=== PATIENT | female | born 1965 | race Caucasian/White ===

== ENCOUNTER → 2021-05-06 | Outpatient (CLI) | payer OTHER | LOC: RAD 14:12 | PROVIDERS: Nurse Practitioner Family | DX: M54.12 Radiculopathy, cervical region (principal); R06.02 Shortness of breath; R60.0 Localized edema; R35.0 Frequency of micturition; I10 Essential (primary) hypertension; M25.559 Pain in unspecified hip; M85.661 Other cyst of bone, right lower leg; M79.606 Pain in leg, unspecified; M54.9 Dorsalgia, unspecified; M25.519 Pain in unspecified shoulder; M51.34 Other intervertebral disc degeneration, thoracic region | CPT/HCPCS: 36415; 71046; 72040; 72070; 72100; 73030; 73522; 73590; 80048; 81001; 83880; 85379; 93005 ==

== ENCOUNTER → 2021-05-16 | Outpatient (CLI) | payer OTHER | LOC: HEART 5 07:53 | DX: R06.02 Shortness of breath (principal); R68.89 Other general symptoms and signs; R60.0 Localized edema | CPT/HCPCS: 78452; A9502; J2785 ==

== ENCOUNTER → 2021-06-15 | Outpatient (CLI) | payer OTHER | LOC: HEART 5 09:30 | DX: R94.39 Abnormal result of other cardiovascular function study (principal) | CPT/HCPCS: 93306 ==

== ENCOUNTER → 2021-07-15 | Outpatient (CLI) | payer OTHER | LOC: EXRD 12:50 | DX: N18.31 Chronic kidney disease, stage 3a (principal); N20.0 Calculus of kidney | CPT/HCPCS: 76775 ==

== ENCOUNTER → 2021-10-25 | Outpatient (CLI) | payer OTHER | LOC: EMI 09:48 | DX: M25.511 Pain in right shoulder (principal); M25.611 Stiffness of right shoulder, not elsewhere classified; R93.7 Abnormal findings on diagnostic imaging of other parts of musculoskeletal system | CPT/HCPCS: 73221 ==

== ENCOUNTER → 2021-11-29 | Outpatient (CLI) | payer OTHER | LOC: EXRD 11:05 | DX: R06.02 Shortness of breath (principal) | CPT/HCPCS: 71046 ==

== ENCOUNTER → 2022-02-16 | Outpatient (CLI) | payer OTHER ==
[2022-02-16 13:31] LABS: HEMOGLOBIN 13.4 gm/dl (12.3-15.3); RED BLOOD COUNT 4.43 M/UL (4.00-5.10); WHITE BLOOD COUNT 6.5 K/UL (4.5-11.0)
[2022-02-16 13:52] LABS: BUN/CREATININE RATIO 31 (0-10)
== END ==
LOC: LAB 12:33
PROVIDERS: Nurse Practitioner Family
DX: E11.9 Type 2 diabetes mellitus without complications (principal); M54.12 Radiculopathy, cervical region; I25.10 Atherosclerotic heart disease of native coronary artery without angina pectoris; R55 Syncope and collapse; R53.83 Other fatigue
CPT/HCPCS: 36415; 80053; 81001; 82550; 82552; 83036; 83615; 83625; 84439; 84443; 85025

== ENCOUNTER → 2022-04-22 | Outpatient (CLI) | payer OTHER ==
[2022-04-22 13:18] LABS: HEMOGLOBIN 13.3 gm/dl (12.3-15.3); RED BLOOD COUNT 4.36 M/UL (4.00-5.10); WHITE BLOOD COUNT 8.3 K/UL (4.5-11.0)
[2022-04-22 13:45] LABS: BUN/CREATININE RATIO 25 (0-10)
[2022-04-23 06:42] LABS: CREATININE, URINE 45.8 mg/dL (Not Estab.)
[2022-04-23 07:09] LABS: VITAMIN D, 25-HYDROXY 20.2 ng/mL (30.0-100.0)
[2022-04-23 10:16] LABS: ANTISTREPTOLYSIN O AB 121.8 IU/mL (0.0-200.0); RHEUMATOID ARTHRITIS FACTOR 10.1 IU/mL (<14.0)
== END ==
LOC: LAB 12:30
PROVIDERS: Nurse Practitioner Family
DX: E11.22 Type 2 diabetes mellitus with diabetic chronic kidney disease (principal); N18.30 Chronic kidney disease, stage 3 unspecified; M25.50 Pain in unspecified joint; E78.5 Hyperlipidemia, unspecified; Z00.00 Encounter for general adult medical examination without abnormal findings; R53.83 Other fatigue; E03.9 Hypothyroidism, unspecified; E53.8 Deficiency of other specified B group vitamins; E55.9 Vitamin D deficiency, unspecified; N39.0 Urinary tract infection, site not specified; D50.9 Iron deficiency anemia, unspecified
CPT/HCPCS: 36415; 80053; 80061; 81001; 82043; 82570; 82607; 82728; 83036; 83540; 83550; 84439; 84443; 84550; 85025; 85652; 86038; 86060; 86140; 86431; 87086

== ENCOUNTER → 2022-06-27 | Outpatient (CLI) | payer OTHER ==
[2022-06-27 14:51] LABS: BUN/CREATININE RATIO 30 (0-10)
== END ==
LOC: LAB 13:14
PROVIDERS: Nurse Practitioner Family
DX: I10 Essential (primary) hypertension (principal); E03.9 Hypothyroidism, unspecified; M54.16 Radiculopathy, lumbar region; M25.552 Pain in left hip; M47.816 Spondylosis without myelopathy or radiculopathy, lumbar region
CPT/HCPCS: 36415; 72100; 73522; 80048; 84439; 84443